=== PATIENT | female | born 1940 | race Caucasian/White ===

== ENCOUNTER 2017-02-13 06:21 | Day surgery (SDC) | payer MEDICARE ==
[~2017-02-13] VITALS: Ht 144.8 cm; Wt 77.0 kg
[~2017-02-13 06:21] MED LIST: DIOV320T PO; HYDR-2768 PO; OXYC-360 PO; STOO100C PO
[2017-02-13] MEDS ORDERED: IOHEXOL 350 MG/ML 10 ML VIAL (for RAD DIAG) IVCONTRAST ONE (06:22)
[2017-02-13] MEDS ORDERED: IOHEXOL 350 MG/ML 50 ML BTL (for Cath Lab) OTHER ONE (06:22)
[2017-02-13 07:00] VITALS: BP 149/77; PULSE 69; RESP 17; O2SAT 97
[2017-02-13] MEDS ORDERED: ASPI1TAB57 PO (07:01)
[2017-02-13] MEDS ORDERED: PRAV20TA2 PO (07:01)
[2017-02-13] MEDS ORDERED: VENTAER INH (07:01)
[2017-02-13] MEDS ORDERED: FURO20TA PO (07:01)
[2017-02-13] MEDS ORDERED: VALS1TAB70 PO (07:01)
[2017-02-13] MEDS ORDERED: MULTTAB67 PO (07:01)
[2017-02-13] MEDS ORDERED: OMEP20TA93 PO (07:01)
[2017-02-13] MEDS ORDERED: HEPARIN-NS/PF INJ 1,000 ML ONE (08:45)
[2017-02-13] MEDS ORDERED: MIDAZOLAM HCL 2 MG/2 ML VIAL ONE (08:52)
--- NOTE | 2017-02-13 09:40 | CATHPROC ---
[employer] HIS Report Study Information Study Number Admission Scheduled Start Study Start [id number] Feb 13 2017 6:21AM 02/13/2017 Feb 13 2017 8:30AM [facility] Cardiac Catheterization Admit Source Facility Department Other [facility] Security Chief Physician and Clinical Staff Initial Chase Martinez Trimming Inspectorlatoya Conti RN, Ayna Recorder Delaney MontielRN Recorder Omi Rowley,RT(R) Scrub Shayy Jara,RT(R) Procedures Performed Procedure Location (Site) Vessel Name Coronary Angiograms LCA Left Coronary Coronary Angiograms RCA Right Coronary Equipment Time Bladder Tier Description Size Mfg Part Number Used/Scraped ARROW INTERNATIONAL CATHETER, FR.7 BALLOON [id number] 08:44 FR 7 Used INC. WEDGE PRESSURE *[id number] TRANSDUCER, TRUWAVE [id number] 08:44 CARRINGTON HOYOS * Used W/STOCKCOCK *[id number] [id number] *[id number] [id number] *[id number] 08:44 MEDLINE INDUSTRIES PACK, CCL CUSTOM * Used *[id number] 08:44 Glaxstar PACER PEN, SKIN DUAL W/ RULER * Used *[id number] 08:44 [employer] WIRE, 3MMJ .035 180CM 180CM Used *[id number] 08:44 NAMIC MANIFOLD, 2 PORT * Used *[id number] 08:44 NAMIC MANIFOLD, 4 PORT * Used *[id number] 08:44 NYCOMED OMNIPAQUE, 350 MG, 150ML 150ML [id number] Used [id number] 08:44 GERBER [employer] BLANKET,WARM AIR CCL * Used *[id number] 08:44 TERUMO MEDICAL SHEATH, FR5 TERUMO (10CM) FR 5 Used *[id number] 08:48 TERUMO MEDICAL SHEATH, FR5 TERUMO (10CM) FR 5 Used *[id number] 08:44 TERUMO MEDICAL SHEATH, FR7 TERUMO (10CM) FR 7 Used *[id number] History: Current Medications Medication Dosage/Unit Route Frequency Last Date/Time Taken ASA 81 mg Oral LASIX 20 mg Oral Statins (any) 20 mg Oral DIOVAN 320 mg Oral History: Allergies Allergy Reaction No Known Allergies History: Risk Factors Family History of Hypertension Dyslipidemia Previous NV Previous Heart Failure Premature CAD Yes Yes No No No Prior Valve Prior PCI Prior CABG Surgery No No No Cerebrovascular Peripheral Artery Chronic Lung On Dialysis Diabetes Disease Disease Disease No No No Yes No History: Symptoms/Diagnosis Selection Items Chest pain MONTILLA Valve disease History: Stress Tests Stress or Imaging Studies Performed No History: Other Disease Selection Items COPD HTN History: Other Current Smoker No Labs Hgb (g/dl) Hct (%) WBC (l/cumm) Platelets (thousands) 11.60-17.00 35.00-51.00 4.00-11.00 150.00-450.00 11.7 34.9 4 152 Glucose (mg/dl) BUN (mg/dl) Creatinine (mg/dl) BUN:Creatinine (1:x) 74.00-106.00 7.00-18.00 0.50-1.30 10.00-20.00 87 18 0.8 22.5 Na (meq/l) K (meq/l) 136.00-145.00 3.50-5.10 140 4.1 INR (PTT:PT) 0.90-1.10 0.9 CPK-MB (ng/ML) 0.50-3.60 Not Drawn Medication Medication Total Dose (Bolus/Oral) Medication Total Dosage/Unit 1% XYLOCAINE 20 mL FENTANYL 50 mcg VERSED 2 mg Medications (Bolus/Oral) Medication Time Given Dosage/Unit Administered By Reason FENTANYL 02/13/2017 9:11:02 AM 50 mcg Ayan Conti RN 50 mcg FENTANYL given in lab by Ayan Conti RN via Peripheral IV. Ordered by Chase Lopez. 1% XYLOCAINE 02/13/2017 9:12:25 AM 20 mL Chase Lopez 20 mL 1% XYLOCAINE given in lab by Chase Lopez in Right Groin via Subcutaneous. Ordered by Chase Lopez. VERSED 02/13/2017 9:12:51 AM 2 mg Ayan Conti RN 2 mg VERSED given in lab by Ayan Conti RN in Left Antecubital via Peripheral IV. Ordered by Chase Lopez. Initial Case Assessment Cardiovascular HR Rhythm NIBP Chest Pain 73 NSR 160/93 0 Edema Present Skin color Skin Mild Normal Warm Dry Circulatory - Right Pulses Dorsalis Pedis Posterior Tibial Femoral 2 2 2 Scale (0,1,2,3,4,d) Circulatory - Left Pulses Dorsalis Pedis Posterior Tibial Femoral 1 1 1 Scale (0,1,2,3,4,d) Circulatory - Lower Extremities Color Lower Right Color Lower Left Normal Normal Neurological State Oriented to time-place- Alert Moves all extremities person Respiration - General Respiration Rate SpO2 (%) (B/min) 19 97 Final Case Assessment Cardiovascular HR Rhythm NIBP Chest Pain 65 NSR 141/70 0 Edema Present Skin color Skin Mild Normal Warm Dry Circulatory - Right Pulses Dorsalis Pedis Posterior Tibial Femoral 2 2 2 Scale (0,1,2,3,4,d) Circulatory - Left Pulses Dorsalis Pedis Posterior Tibial Femoral 1 1 1 Scale (0,1,2,3,4,d) Circulatory - Lower Extremities Color Lower Right Color Lower Left Normal Normal Neurological State Oriented to time-place- Drowsy Moves all extremities person Respiration - General Respiration Rate SpO2 (%) O2 (lpm) (B/min) 20 100 2 Chronological Log Time Study Chronological Log 8:39:40 Patient arrived via Bed. 8:39:42 Patient Name, D.O.B, / Armband Verified By R.N. 8:39:43 Consent signed by the physician and the patient and verified by the [facility] Security Chief staff. 8:39:44 Pre-op and post- op instructions given; patient acknowledges understanding of instructions. 8:41:13 Verbal Stimulation=2 Physical Stimulation=2 Airway=2 Respiration=2 TOTAL=8. (0=absent, 1=li mited, 2=present) 8:41:30 Presedation assessment performed by [facility] Security Chief RN. 8:41:34 Patient has been NPO for More than 6Hrs. 8:41:34 Skin Breakdown-None per pt 8:42:08 Patient Warmer Placed on the Table. 8:42:10 Sharri Prominences Protected 8:42:32 A # 20 IV was noted in the Antecubital (left). Grade = 0 0.9NS attached by ALTHEA Norris in la b. Infusing at KVO 8:43:09 History and physical on the chart or being dictated. Vitals capture started with the following parameters, Patient=Adult, Interval=3 min, Initial Pr smxisu=227 mmHg, 8:45:45 Deflation Rate=5 mmHg, Cuff placed on Right Arm 8:46:12 Reference ECG taken 8:47:00 Bilateral groins prepped with 2% chlorhexidine, and draped after a 3 minute waiting time. 8:47:07 HR=71 bpm, JLIG=180/83 mmhg, SpO2=97.0 %, Resp=20 B/min, Pain=0, Marjyane=10, Hernández=2 8:49:32 HR=72 bpm, IZVO=353/75 mmhg, SpO2=98.0 %, Resp=19 B/min, Pain=0, Maryjane=10, Hernández=2 8:52:32 HR=71 bpm, XXBV=526/81 mmhg, SpO2=98.0 %, Resp=20 B/min, Pain=0, Maryjane=10, Hernández=2 8:55:33 HR=74 bpm, MJDQ=131/82 mmhg, SpO2=98.0 %, Resp=19 B/min, Pain=0, Maryjane=10, Hernández=2 8:57:46 Pressure channel 1 zeroed. 8:58:33 HR=73 bpm, BAJN=759/79 mmhg, SpO2=97.0 %, Resp=18 B/min, Pain=0, Maryjane=10, Hernández=2 Assessment: Initial Case, HR=73 BPM, Rhythm=NSR, TTSO=584/93 mmhg, Chest Pain=0, Edema=Mild, Col or=Normal, Skin = Warm, Dry Right Pulses: Darnell Ped=2, Post Tib=2, Femoral=2 Left Pulses: Darnell Ped=1, Post Tib=1, Femoral=1 9:01:02 Lower Right Extremities: Color=Normal Lower Left Extremities: Color=Normal Neurological: State=Alert, Ox3, VENTURA Respiration: Resp=19 B/min, SpO2=97 % 9:01:33 HR=73 bpm, YKZZ=580/74 mmhg, SpO2=97.0 %, Resp=21 B/min, Pain=0, Maryjane=10, Hernández=2 9:01:58 MD paged 9:04:31 HR=67 bpm, BDWP=400/76 mmhg, SpO2=96.0 %, Resp=18 B/min, Pain=0, Maryjane=10, Hernández=2 9:05:08 MD responded 9:07:31 HR=69 bpm, JTMY=264/74 mmhg, SpO2=96.0 %, Resp=23 B/min, Pain=0, Maryjane=10, Hernández=2 9:07:59 MD arrived. 9:10:34 HR=69 bpm, KSCA=331/70 mmhg, SpO2=97.0 %, Resp=21 B/min, Pain=0, Maryjane=10, Hernández=2 9:11:02 50 mcg FENTANYL given in lab by Ayan Conti RN via Peripheral IV. Ordered by Chase Lopez . Time Out. Correct patient, correct procedure, correct physician, power injector not loaded with contrast with filling station laborer 9:11:50 team present. Time Out Concurred by MD and individual staff in procedure. 9:12:24 Case Start 9:12:25 20 mL 1% XYLOCAINE given in lab by Chase Lopez in Right Groin via Subcutaneous. Ordered Chase Hendrix. 9:12:51 2 mg VERSED given in lab by Ayan Conti RN in Left Antecubital via Peripheral IV. Ordered Chase Hendrix. 9:13:32 HR=71 bpm, OBBG=587/75 mmhg, SpO2=86.0 %, Resp=15 B/min 9:13:41 Access site was Left Femoral Artery. 9:13:51 A SHEATH, FR5 TERUMO (10CM) FR 5 was advanced into the Fem Art (right) using the Percutaneou s technique. 9:14:39 Access site was Right Femoral Vein. 9:14:48 A SHEATH, FR7 TERUMO (10CM) FR 7 was advanced into the Fem Vein (right) using the Percutaneo us technique. 9:15:16 A CATHETER, FR.7 BALLOON WEDGE PRESSURE FR 7 was inserted via Fem Vein (right) 9:16:30 HR=65 bpm, GAUI=627/62 mmhg, SpO2=97.0 %, Resp=13 B/min Recorded Pressure: RV, HR=67, Condition=Condition 1 9:16:36 (Right Ventricle) RV 34/13 Recorded Pressure: MPA, HR=66, Condition=Condition 1 9:17:42 (Main Pulmonary Artery) MPA Recorded Pressure: PCW, HR=63, Condition=Condition 1 9:18:55 (Pulmonary Capillary Wedge) PCW 9:19:28 HR=64 bpm, FMEG=217/62 mmhg, SpO2=98.0 %, Resp=12 B/min, Pain=0, Maryjane=7, Hernández=3 9:19:52 Saturation: Site=Ao (Aorta) , O2=97.4 %, Hgb=11.7 gm/dl, Condition=Condition 1. Used in calc ulation. Recorded Pressure: RA, HR=65, Condition=Condition 1 9:20:10 (Right Atrium) RA 17/13/11 9:20:27 [place] Guevara Catheter Removed Saturation: Site=MPA (Main Pulmonary Artery) , O2=74.1 %, Hgb=11.7 gm/dl, Condition=Condition 1 . Used in 9:20:32 calculation. A JL 4.0 INFINITI CATHETER FR 5 was advanced over a wire. OMNIPAQUE, 350 MG, 150ML 150ML was us ed for 9:20:48 injections. 9:21:14 Catheter was removed A JR 4.0 INFINITI CATHETER FR 5 was advanced over a wire. OMNIPAQUE, 350 MG, 150ML 150ML was us ed for 9:21:15 injections. 9:22:41 The RCA was injected and visualized at various angles. OMNIPAQUE, 350 MG, 150ML 150ML used . 9:23:05 HR=67 bpm, FMMZ=091/76 mmhg, SpO2=99.0 %, Resp=16 B/min, Pain=0, Maryjane=7, Hernández=3 After removing the current catheter a JL 5.0 INFINITI CATHETER FR 5 was advanced over a WIRE, 3 MMJ .035 180CM 9:23:09 180CM. 9:24:04 The LCA was injected and visualized at various angles. OMNIPAQUE, 350 MG, 150ML 150ML used . Recorded Pressure: Ao, HR=66, Condition=Condition 1 9:24:49 (Aorta) Ao 139/65/96 9:25:33 HR=65 bpm, DIVS=042/73 mmhg, SpO2=99.0 %, Resp=17 B/min, Pain=0, Maryjane=7, Hernández=3 9:25:54 Catheter was removed 9:25:57 Case End 9:28:29 HR=67 bpm, IDNN=329/70 mmhg, SpO2=99.0 %, Resp=18 B/min, Pain=0, Maryjane=7, Hernández=3 9:30:00 Sheath(s) left in place, will be removed in Holding Area Assessment: Final Case, HR=65 BPM, Rhythm=NSR, LCUR=681/70 mmhg, Chest Pain=0, Edema=Mild, Somers r=Normal, Skin = Warm, Dry Right Pulses: Darnell Ped=2, Post Tib=2, Femoral=2 Left Pulses: Darnell Ped=1, Post Tib=1, Femoral=1 9:30:02 Lower Right Extremities: Color=Normal Lower Left Extremities: Color=Normal Neurological: State=Drowsy, Ox3, VENTURA Respiration: Resp=20 B/min, EzY1=158 %, O2=2 lpm 9:30:51 Sterile dressing applied to site 9:30:52 No case complications noted. 9:30:53 Cine recording checked. 9:30:59 DOCU called. Spoke to ALTHEA Gómez. Sheaths ready to be pulled at arrival 9:31:18 Bedside Report will be given. 9:31:23 Verbal Stimulation=2 Physical Stimulation=2 Airway=2 Respiration=2 TOTAL=8. (0=absent, 1=li mited, 2=present) 9:31:31 HR=66 bpm, OHVB=984/74 mmhg, RbT1=389.0 %, Resp=21 B/min, Pain=0, Maryjane=8, Hernández=3 9:31:42 A Left and Right Heart Cath was performed. 9:36:15 Vitals capture stopped. 9:36:27 Patient moved to [facility] End Study - Contrast Media Used In Study Contrast Total Opened (mL) Total Used (mL) Total Wasted (mL) Omnipaque 150 40 110 End Study - Maximum Contrast Load Max Contrast Load (mL) 481.3 End Study - Radiation Exposure Fluoro Time (minutes) 2.7 End Study - Sheaths Sheaths Pulled By Sheath Hold Time (min) Shayy Jara 20 End Study - Patient Disposition Complications Transferred To Interventional Outcome No [facility] Security Chief Holding successful
[2017-02-13] MEDS ORDERED: MISC INFORMATION XX ONE (09:45)
[2017-02-13] MEDS ORDERED: LIDOCAINE HCL 1% 50 ML VIAL INFIL PRN (09:45)
[2017-02-13] MEDS ORDERED: LORazepam 2 MG/ML VIAL IV PUSH PRN (09:45)
[2017-02-13] MEDS ORDERED: METOCLOPRAMIDE HCL 10 MG/2 ML VIAL IV PUSH PRN (09:45)
[2017-02-13] MEDS ORDERED: ATROPINE SULFATE 1 MG/ML VIAL IV PUSH PRN (09:45)
[2017-02-13] MEDS ORDERED: BACITRACIN OINT 0.9 GM PKT TOP ONE (09:45)
[2017-02-13] MEDS ORDERED: SODIUM CHLOR 0.9% 250 ML INJ 250 ML IV PRN (09:45)
[2017-02-13] MEDS ORDERED: ONDANSETRON HCL 4 MG/2 ML VIAL IV PUSH PRN (09:45)
--- NOTE | 2017-02-13 10:23 | MA ---
cc: BECK WICK MD DATE 02/13/2017 INDICATION Aortic stenosis. PROCEDURE PERFORMED 1. Fluoroscopy with interpretation 2. Right heart catheterization 3. Coronary angiography METHOD The risks, benefits and alternatives discussed with the patient. The patient understood and consented to the procedure. PROCEDURE The patient brought into the catheterization lab, placed on the catheterization table. The right groin was prepped and draped in a sterile fashion. The right groin was anesthetized with 2% lidocaine. The right common femoral was cannulated and a 5-Latvian 11 cm sheath was placed. The right femoral vein was accessed and a 6-[place]vian 11 cm sheath was placed. RIGHT HEART CATHETERIZATION A [place]-Guevara pulmonary II catheter was advanced to the level of the right atrium under fluoroscopic guidance. Hemodynamics were performed in all chambers while advancing to the pulmonary capillary wedge position. Hemodynamics are as follows: 1. Right atrial pressure measured 11 mmHg. 2. Right ventricular pressure measured 34/8 mmHg. 3. Pulmonary arterial pressure measured 36/14 mmHg. 4. Pulmonary capillary wedge pressure measured at 14 mmHg. 5. Cardiac output measured at 5.7 liters per minute. 6. Cardiac index 3.4 liters per minute per meter squared. CORONARY ANGIOGRAPHY 1. Left main coronary is angiographically normal. 2. Left anterior descending coronary artery has a 30% stenosis in the mid segment. The remainder of the vessel has minor luminal irregularities. 3. Left circumflex is a codominant vessel that gives rise to a very small posterior descending branch. There is a ramus intermedius branch with minor luminal irregularities. The remainder of the circumflex is angiographically normal. 4. Right coronary is also codominant and gives rise to a right-sided posterior descending branch. 5. The right coronary has minor luminal irregularities. CONCLUSIONS 1. Severe aortic stenosis. 2. Normal left and right heart filling pressures. 3. Normal cardiac output and index. 4. Mild nonobstructive coronary disease. PLAN We will continue with our workup related to the aortic valve. We will determine her candidacy for transcatheter aortic valve replacement versus surgical aortic valve replacement. MD CHANTELLE Carpio/NIRMALA /9:51 AM /10:09 AM
[2017-02-13 12:17] LABS: BLOOD, URINE MOD (NEG); GLUCOSE,URINE NEG (NEG); KETONE, URINE NEG (NEG); NITRITE,URINE NEG (NEG); SQUAMOUS EPITHELIAL CELL URINE <1 /hpf (0-5); URINE COLOR LIGHT-YELLOW (YELLW/STRAW)
[2017-02-13 12:18] LABS: COMMENT (UR) CATH-CULT NOT IND; CULTURE IF INDICATED CATH CULTURE NOT IND
--- NOTE | 2017-02-13 14:12 | PD.CAR.PN ---
CVT Progress Note Subjective/Hospital Course: sts data discussed with pt and son RISK SCORES About the STS Risk Calculator Procedure: AV Replacement Risk of Mortality: 3.083% Morbidity or Mortality: 17.053% Long Length of Stay: 7.485% Short Length of Stay: 31.255% Permanent Stroke: 1.695% Prolonged Ventilation: 12.037% DSW Infection: 0.217% Renal Failure: 3.47% Reoperation: 7.238% Objective: Vital Signs Date Time Temp Pulse Resp B/P (MAP) Pulse Ox O2 Delivery O2 Flow Rate FiO2 02/13/17 10:23 97 Room Air 02/13/17 07:00 69 17 149/77 (101) 97 Labs: Laboratory Tests Test 02/13/17 06:50 02/13/17 11:08 Albumin 3.9 GM/DL (3.4-5.0) Urine Color LIGHT-YELLOW (YELLW/STRAW) Urine Turbidity CLEAR (CLEAR) Urine pH 7.0 (5.0-8.5) Urine Specific Hope 1.026 (1.002-1.035) Urine Protein NEG mg/dL (NEG-TRACE) Urine Glucose (UA) NEG mg/dL (NEG) Urine Ketones NEG mg/dL (NEG) Urine Occult Blood MOD (NEG) Urine Nitrite NEG (NEG) Urine Bilirubin NEG (NEG) Urine Urobilinogen LESS THAN 2.0 MG/DL (LESS Urine Leukocyte Esterase SMALL (NEG) Urine RBC 1 /hpf (0-3) Urine WBC 2 /hpf (0-5) Urine Squamous Epithelial Cells <1 /hpf (0-5) Microscopic Urinalysis Comment CATH-CULT NOT IND Bernie Sheikh Feb 13, 2017 14:12
[2017-02-13 14:45] LABS: AUTOMATED NEUTROPHIL # 13.2 TH/MM3 (1.8-7.7); BASOPHIL % 0.2 % (0.0-2.0); EOSINOPHIL # 0.1 TH/MM3 (0-0.4); EOSINOPHIL % 0.7 % (0.0-4.0); HEMATOCRIT 33.1 % (35.0-46.0); HEMO FLAGS DIFF FINAL; LYMPH % 13.6 % (9.0-44.0); LYMPHOCYTE # 2.3 TH/MM3 (1.0-4.8); MEAN CELL VOLUME 90.8 FL (80.0-100.0); MEAN CORPUSCULAR HEMOGLOBIN 31.4 PG (27.0-34.0); MEAN CORPUSCULAR HGB CONC 34.6 % (32.0-36.0); MONO % 7.4 % (0.0-8.0); NEUT % 78.1 % (16.0-70.0); PLATELET COUNT 283 TH/MM3 (150-450); RED BLOOD COUNT 3.65 MIL/MM3 (4.00-5.30); RED CELL DISTRIBUTION WIDTH 13.3 % (11.6-17.2); WHITE BLOOD COUNT 16.9 TH/MM3 (4.0-11.0)
--- NOTE | 2017-02-13 15:06 | RADRPT ---
EXAM DATE/TIME: 02/13/2017 14:28 [facility] COMPARISON: No previous studies available for comparison. INDICATIONS : Preop aortic valve replacement. MEDICAL HISTORY : Coronary artery disease. HTN. Asthma. Endometrial carcinoma. SURGICAL HISTORY : Orthopedic surgery, right index finger. ENCOUNTER: Initial ACUITY: 1 day PAIN SCORE: 3/10 LOCATION: Bilateral neck PEAK SYSTOLIC VELOCITIES (cm/sec): ICA/CCA RATIO: Right: 1.6 Left: 1.6 ICA: Right: 98 Left: 128 CCA: Right: 63 Left: 81 ECA: Right: 69 Left: 60 VERTEBRAL: Right: 44 antegrade Left: 60 antegrade Elevated flow velocities and ICA/CCA ratios have been found to correlate with increased degrees of vessel stenosis, calculated as percentage of diameter relative to a normal segment of distal ICA/CCA FINDINGS: RIGHT CAROTID: Mild calcified plaque involving the carotid bulb and ICA origin. The ICA is tortuous. No significant stenosis is visualized. The waveforms are within normal limits. LEFT CAROTID: Mild calcified plaque involving the carotid bulb and ICA origin. The ICA is tortuous. No significant stenosis is visualized. The waveforms are within normal limits. VERTEBRAL ARTERIES: Antegrade flow is seen in both vertebral arteries. MISCELLANEOUS: None. CONCLUSION: 1. Mild calcified atherosclerotic plaque without a hemodynamically significant stenosis involving eit her carotid artery. Mild elevation of both ICA velocities relates to tortuosity of the vessels. 2. Antegrade flow involving both vertebral arteries. Gasper Hess Jr., MD on February 13, 2017 at 15:02 Board Certified Radiologist. This report was verified electronically.
[2017-02-13 15:21] LABS: ALKALINE PHOSPHATASE 166 U/L (45-117); ALT (GPT) 72 U/L (10-53); ANION GAP 12 MEQ/L (5-15); AST (GOT) 42 U/L (15-37); BICARBONATE 22.5 MEQ/L (21.0-32.0); BLOOD UREA NITROGEN 14 MG/DL (7-18); CHLORIDE 103 MEQ/L (98-107); GLOMERULAR FILTRATION RATE 109 ML/MIN (>89); SODIUM (NA) 137 MEQ/L (136-145); TOTAL BILIRUBIN ADULT 0.3 MG/DL (0.2-1.0)
--- NOTE | 2017-02-13 16:58 | RADRPT ---
EXAM DATE/TIME: 02/13/2017 16:18 [facility] COMPARISON: No previous studies available for comparison. INDICATIONS : Pre op AVR. Evaluate for pneumothorax, pneumonia, or communicable diseases. MEDICAL HISTORY : None. SURGICAL HISTORY : None. ENCOUNTER: Initial ACUITY: 1 day PAIN SCORE: 0/10 LOCATION: Bilateral chest FINDINGS: A single view of the chest demonstrates the lungs to be symmetrically aerated without evidence of mas s, infiltrate or effusion. The cardiomediastinal contours demonstrate mild dilation of aortic root. Osseous structures are intact. CONCLUSION: 1. Mild dilation of aortic root. No acute abnormality. Jono Jones MD on February 13, 2017 at 16:55 Board Certified Radiologist. This report was verified electronically.
--- NOTE | 2017-02-13 19:40 | RADRPT ---
EXAM DATE/TIME: 02/13/2017 17:17 [facility] COMPARISON: No previous studies available for comparison. INDICATIONS : Post cardiac catherization, TAVR. IV CONTRAST: 99 cc Omnipaque 350 (iohexol) IV RADIATION DOSE: 12.20 CTDIvol (mGy) MEDICAL HISTORY : Cardiovascular disease. Hypertension. Endometrial cancer. SURGICAL HISTORY : Cardiac catherization. ENCOUNTER: Initial ACUITY: 1 day PAIN SCALE: 1/10 LOCATION: Bilateral chest TECHNIQUE: Volumetric scanning was performed using a multi-row detector CT scanner. The data was post processed with a variety of visualization algorithms including full volume maximum intensity projection, multi -planar sliding thin slab reformation, curved planar reformation, and surface rendering techniques. Using automated exposure control and adjustment of the mA and/or kV according to patient size, radiat ion dose was kept as low as reasonably achievable to obtain optimal diagnostic quality images. DIC OM format image data is available electronically for review and comparison. FINDINGS: CARDIAC: The coronary system is right dominant. There is focal calcification at the LAD. Minimal calcificatio n at the left circumflex. Significant stenosis is not seen. There is a moderate pericardial effusion measuring up to 1 cm. AORTIC ROOT/VALVE: 3 cusps are evident with aortic valve calcifications. The aortic root measures 2.7. Mid ascending thoracic aorta measures 3.7 cm with no calcifications. THORACIC AORTA: Origin of the great vessels is normal. No evidence of aneurysm, mural thrombus, dissection, or steno sis. There are mild calcification seen in the descending thoracic aorta. The mid descending thoracic aorta measures 2.7 cm. ABDOMINAL AORTA: No evidence of aneurysm, mural thrombus, dissection, or stenosis. There are scattered mural calcifica tions. CELIAC ARTERY: Celiac artery is widely patent. SMA: Superior mesenteric artery is widely patent. RIGHT RENAL ARTERY: Right renal artery is widely patent. LEFT RENAL ARTERY: Left renal artery is widely patent. RIGHT COMMON ILIAC: No evidence of aneurysm, mural thrombus, dissection, mural calcification, or stenosis. The common fe moral measures 0.8 cm. LEFT COMMON ILIAC: No evidence of aneurysm, mural thrombus, dissection, mural calcification, or stenosis. The common fe moral measures 0.7 cm. THORAX: There is a calcified granuloma in the right lower lobe. There some minimal atelectasis at the left li ngula and right middle lobe. ABDOMEN: There are scattered colonic diverticula. There is degenerative change in the lumbar spine. PELVIS: There is some minimal induration at the right groin likely from recent catheterization. CONCLUSION: 1. Scattered atherosclerotic calcifications seen throughout the arterial system. 2. Calcifications at the aortic valve. 3. Moderate pericardial effusion. 4. Suspected postcatheterization changes at the right groin region. There some mild induration around the common femoral region. No focal fluid collection is seen. Jordan Siu MD on February 13, 2017 at 19:23 Board Certified Radiologist. This report was verified electronically.
[2017-02-13 21:49] LABS: HEMOGLOBIN A1a 0.8 %; HEMOGLOBIN A1b 1.8 %; HEMOGLOBIN LA1C 1.9 %; HEMOGLOBIN P3 4.9 %
--- NOTE | 2017-02-14 07:43 | MB ---
cc: CIRO LOVE M.D., SOHIT K. MD MINOR, STEPHEN DATE OF CONSULTATION: 02/13/2017 DATE OF : 1940 HISTORY OF PRESENT ILLNESS A 76-year-old female patient of Dr. Ciro Love and Dr. Chase Lopez who apparently was a referral from the primary care regarding aortic stenosis. She was following at [facility] for the aortic stenosis but has not been there since 2014, was not interested in surgery. She speaks only South African, very little Setswana. Her son is at the bedside for translation. She has been complaining of some chest pressure off and on at rest and exertion, moderate dyspnea with exertion, chronic lower extremity edema. She does take Lasix which seems to help with the edema. She has had some difficulty walking up some stairs recently. She underwent cardiac cath today that showed nonobstructive disease. She did have 30% stenosis in the mid distal LAD, ejection fraction of 55%. She underwent prior 2D echo at Dr. Lopez's office which showed a mean gradient of 44 mmHg, moderate to severe aortic valve stenosis, some mild aortic insufficiency, mild tricuspid regurgitation. We were consulted to evaluate for aortic valve replacement versus transcatheter aortic valve replacement. The patient's frailty score is 1 out of 4. Her risk of mortality is 3.0. PAST MEDICAL HISTORY Her past medical history significant for - 1. Aortic stenosis. 2. 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 3. Anemia. 4. Asthma. 5. Benign essential hypertension. 6. Hyperlipidemia. 7. Obesity. PAST SURGICAL HISTORY Surgeries include - 1. Colonoscopy. 2. EGD. 3. Right index finger surgery. 4. Hysteroscopy. 5. Radiation therapy. 6. Salpingo-oophorectomy. 7. Total abdominal hysterectomy. ALLERGIES NO KNOWN DRUG ALLERGIES. MEDICATIONS Home meds include - 1. Baby aspirin. 2. Lasix. 3. Nystatin. 4. Omeprazole. 5. Multivitamin. 6. Pravachol. 7. Valsartan. 8. Ventolin inhaler. FAMILY HISTORY Noncontributory. SOCIAL HISTORY Lives alone but close to her son. Speaks only South African. Nonsmoker. Retired. REVIEW OF SYSTEMS As above in HPI, other 12 systems unremarkable. PHYSICAL EXAMINATION VITAL SIGNS: Blood pressure 140/70, heart rate of 70, afebrile, O2 sat 97 on room air. GENERAL: The patient is awake, alert, in no acute distress. HEAD, EYES, EARS, NOSE AND THROAT: Head is normocephalic. She does wear dentures at times. NECK: Supple. No JVD. HEART: Heart sounds S1 and S2. Grade 3/6 systolic murmur best noted at the right sternal border. LUNGS: Clear to auscultation. No wheezes, rales or rhonchi. ABDOMEN: Soft, nontender. No masses or organomegaly. EXTREMITIES: No cyanosis, clubbing or edema. She does have trace edema to her lower extremities. LABORATORY DATA Lab work shows hemoglobin 11, hematocrit of 35, white cell count of 4, platelet count of 156. Sodium 140, potassium 4.1, BUN of 18, creatinine 0.82. INR 0.9. IMPRESSION This is a 76-year-old female with [id number] aortic stenosis, symptomatic [place] Class II-III, STS risk score of 3 and frailty score of 1/4. The patient has been seen and evaluated by Dr. Kacie Rios. Recommendation for minimally invasive aortic valve replacement. The son is wanting to talk to his brothers who [place] prior to making any further decision. In the meantime, we will obtain carotid ultrasound, CT TAVR chest pending. Other lab work pending. We will give the patient information for possible aortic valve replacement, and they will call us to make an appointment with our office. Dictated by ESE Jones Kacie NGO/SHEKHAR /2:20 PM /7:39 AM
--- NOTE | 2017-02-14 08:19 | ECHRPT ---
Indication: CONCLUSIONS Normal left ventricular size. Mild concentric left ventricular hypertrophy. The left ventricular systolic function is hyperdynamic with an estimated ejection fraction in the ra nge of 65- 70%. Nvhla-xa-kfca mitral valve regurgitation. Aortic valve sclerosis is present. Mild aortic valve regurgitation. Severe aortic valve stenosis. Aortic valve area is 0.56 cm. Aortic valve mean gradient is 41 mmHg. There is trace tricuspid valve regurgitation. The estimated pulmonary arterial pressure is 32.8 mmHg. BP: / HR: Rhythm: Sinus MEASUREMENTS (Male / Female) Normal Values Technical Quality:Fair 2D ECHO LV Diastolic Diameter PLAX 4.5 cm 4.2 - 5.9 / 3.9 - 5.3 cm LV Systolic Diameter PLAX 3.0 cm IVS Diastolic Thickness 1.1 cm 0.6 - 1.0 / 0.6 - 0.9 cm LVPW Diastolic Thickness 1.1 cm 0.6 - 1.0 / 0.6 - 0.9 cm LV Relative Wall Thickness 0.5 LVOT Diameter 1.8 cm Aortic Root Diameter 2.1 cm LA Systolic Diameter LX 3.5 cm 3.0 - 4.0 / 2.7 - 3.8 cm M-MODE AV Cusp Separation MM 1.3 cm DOPPLER AV Peak Velocity 412.0 cm/s AV Peak Gradient 67.9 mmHg AV Mean Gradient 41.0 mmHg AV Velocity Time Integral 113.0 cm AI Peak Velocity 432.0 cm/s AI Peak Gradient 74.6 mmHg AI Pressure Half Time 506.0 ms LVOT Peak Velocity 80.5 cm/s LVOT Peak Gradient 2.6 mmHg LVOT Velocity Time Integral 23.6 cm AV Area Cont Eq vti 0.6 cm AV Area Cont Eq pk 0.5 cm Mitral E Point Velocity 64.2 cm/s Mitral A Point Velocity 67.1 cm/s Mitral E to A Ratio 1.0 LV E' Lateral Velocity 34.5 cm/s Mitral E to LV E' Lateral Ratio 1.9 LV E' Septal Velocity 34.2 cm/s Mitral E to LV E' Septal Ratio 1.9 TR Peak Velocity 239.0 cm/s TR Peak Gradient 22.8 mmHg Right Atrial Pressure 10.0 mmHg Pulmonary Artery Systolic Pressu 32.8 mmHg Right Ventricular Systolic Press 32.8 mmHg PV Peak Velocity 50.4 cm/s PV Peak Gradient 1.0 mmHg FINDINGS LEFT VENTRICLE Normal left ventricular size. Mild concentric left ventricular hypertrophy. The left ventricular systolic function is hyperdynamic with an estimated ejection fraction in the ra nge of 65- 70%. RIGHT VENTRICLE Normal right ventricular size and systolic function. LEFT ATRIUM The left atrial size is normal. RIGHT ATRIUM The right atrial size is normal. ATRIAL SEPTUM Normal atrial septal thickness without atrial level shunting by limited color doppler interrogation. AORTA The aortic root and proximal ascending aorta are normal in size on limited imaging. MITRAL VALVE Kyxwu-ei-zzho mitral valve regurgitation. AORTIC VALVE Aortic valve sclerosis is present. Mild aortic valve regurgitation. Severe aortic valve stenosis. Aortic valve area is 0.56 cm. Aortic valve mean gradient is 41 mmHg. TRICUSPID VALVE There is trace tricuspid valve regurgitation. The estimated pulmonary arterial pressure is 32.8 mmHg. PULMONARY VALVE No pulmonary valve regurgitation or stenosis. VESSELS The inferior vena cava is normal in size. PERICARDIUM No pericardial effusion. Chase Lopez MD, FACC (Electronically Signed) Final Date:14 February 2017 08:18
== END 2017-02-13 18:09 | disposition home or self-care (01) ==
LOC: HECH 06:21 → HDIC 06:22 → HECH 18:09
PROVIDERS: ATTEND Internal Medicine
DX: I35.0 Nonrheumatic aortic (valve) stenosis (principal); I25.10 Atherosclerotic heart disease of native coronary artery without angina pectoris; I10 Essential (primary) hypertension; J45.909 Unspecified asthma, uncomplicated; Z85.42 Personal history of malignant neoplasm of other parts of uterus; I31.3 Pericardial effusion (noninflammatory); E78.5 Hyperlipidemia, unspecified; R79.89 Other specified abnormal findings of blood chemistry; Z01.810 Encounter for preprocedural cardiovascular examination
CPT/HCPCS: 71010; 74174; 80053; 81001; 82040; 82810; 83036; 85025; 86850; 86900; 86901; 87641; 93306; 93456; 93880; 99152; C1769; C1893; J1644; J2250; J3010; Q9967

== ENCOUNTER 2017-03-12 12:01 | Inpatient (IN) | payer MEDICARE ==
[~2017-03-12] VITALS: Ht 149.9 cm; Wt 76.9 kg
[2017-03-12] VITALS (7 sets, daily range): BP systolic 110–172; BP diastolic 43–81; PULSE 73–97; RESP 16–20; TEMP 97.6–98; O2SAT 94–99
--- NOTE | 2017-03-12 11:07 | MH ---
cc: ROBINSON DAIGLE DATE OF ADMISSION 03/12/2017 DATE OF 1940 REASON FOR ADMISSION Elective transaortic valve replacement. 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 After thorough evaluation she was deemed to be an adequate candidate for TAVR in the setting of STS frailty and co-morbidities. Today she reports feeling well. Denies chest pain, shortness of breath, PND, fevers, chills, nausea, vomiting, diarrhea or syncope. PAST MEDICAL HISTORY 1. Adenocarcinoma of the uterus status post resection and radiation. 2. Anemia. 3. Asthma. 4. Hypertension. 5. Hyperlipidemia. PAST SURGICAL HISTORY Uterus resection and radiation. ALLERGIES No known drug allergies. SOCIAL HISTORY Denies alcohol, smoking or illicit drug use. FAMILY HISTORY Noncontributory. MEDICATIONS Home medications reviewed. PHYSICAL EXAMINATION VITAL SIGNS: Temperature 97, respiratory rate 20, heart rate 120/80. O2 sat 100% on room air. GENERAL: She is awake, alert and oriented x3, in no acute distress. NECK: No JVD. No carotid bruits. HEART: Regular rate and rhythm. There is a 3/6 systolic ejection murmur in the aortic focus. LUNGS: Clear to auscultation bilaterally. ABDOMEN: Benign. EXTREMITIES: No cyanosis or edema. Pulses throughout. DATA Labs reviewed. STS score of 3%, frailty 1/4. EKG sinus rhythm with nonspecific ST changes. Echocardiogram shows an aortic valve jet velocity of 4.1, mean gradient 41, calculated valve area 0.66, and ejection fraction of 65%. Left heart cath shows nonobstructive coronary artery disease. There is a 30% lesion in the distal LAD and a 20% lesion in the right coronary artery. TAVR CTA shows a short annulus diameter of 21, long annulus diameter of 25 and annular area of 405.8. There is a trileaflet aortic valve. There is no calcification in the LVOT. No calcification in the STJ. The sinus of Valsalva diameter is 32. The STJ is 30. The left coronary height is 14. The right coronary height is 16.9. Iliacs show a minimal luminal diameter on the right of 7.2 and on the left of 7.5. ASSESSMENT 76-year-old female with severe symptomatic aortic stenosis who presents today for elective valve replacement. After thorough evaluation she is deemed to be intermediate risk for AVR and appropriate candidate for TAVR. The risks and benefits of TAVR including but not limited to infection, bleeding, neurovascular trauma, stroke, acute kidney injury, permanent pacemaker placement and emergent bypass surgery and have been explained to the patient. The patient understands the risks and she is willing to proceed. PLAN Keep n.p.o. for a right TF valve with a 23 mm plus 2cc S3 valve. MD CLOVIS Lewis/BT /10:31 AM /10:41 AM DEWAYNE
[~2017-03-12 12:01] MED LIST changes: +ASPI1TAB57 PO; -DIOV320T PO; +FURO20TA PO; +GLYCOPYRROLATE 1 MG/5 ML SYRINGE IV PUSH ONE; -HYDR-2768 PO; +LIDOCAINE HCL 1% PF 5 ML SYRINGE OTHER ONE; +MIDAZOLAM HCL 2 MG/2 ML VIAL IV ONE; +MULTTAB67 PO; +NEOSTIGMINE 5 MG/5 ML SYRINGE IV PUSH ONE; +NORMOSOL R INJ 1,000 ML IV ONE; +OMEP20TA93 PO; +ONDANSETRON HCL 4 MG/2 ML VIAL IV ONE; -OXYC-360 PO; +PHENYLEPH/NS 1000 MCG/10 ML SYR IV ONE; +PRAV20TA2 PO; +PROPOFOL 200 MG/20 ML AMP IV ONE; +ROCURONIUM INJ 50 MG/5 ML SYRINGE IV PUSH ONE; -STOO100C PO; +VALS1TAB70 PO; +VENTAER INH
[2017-03-12] MEDS ORDERED: MUPIROCIN 2% OINT 1 APPLIC/GM SYRINGE EACH NARE PRN (14:00)
[2017-03-12] MEDS ORDERED: ceFAZolin 2 GM PREMIX 50 ML IV PRN (14:00)
[2017-03-12] MEDS ORDERED: CHLORHEXIDINE GLUCONATE 2 % 1 PACK (2 CLOTHS) TOPICAL PRN ×2 (14:00→14:15)
[2017-03-12] MEDS ORDERED: POVIDONE IODINE 5% (ANTISEPSIS KIT) EACH NARE PRN (14:00)
[2017-03-12] MEDS ORDERED: ASPIRIN 325 MG TAB PO ONE (14:00)
[2017-03-12] MEDS ORDERED: LACTATED RINGER'S 1000 ML IV PRN (14:15)
[2017-03-12] MEDS ORDERED: POVIDONE IODINE 5% (ANTISEPSIS KIT) 4 APPLICATIONS EACH NARE PRN (14:15)
[2017-03-12] MEDS ORDERED: SODIUM CHLORID 0.9% 500 ML IV PRN (14:15)
[2017-03-12] MEDS ORDERED: INSULIN HUMAN REGULAR 1,000 UNITS/10 ML VIAL SQ PRN (14:15)
[2017-03-12] MEDS ORDERED: METOPROLOL TARTRATE 25 MG TAB PO PRN (14:15)
[2017-03-12 14:26] LABS: AUTOMATED NEUTROPHIL # 2.7 TH/MM3 (1.8-7.7); BASOPHIL % 0.4 % (0.0-2.0); EOSINOPHIL # 0.1 TH/MM3 (0-0.4); EOSINOPHIL % 1.5 % (0.0-4.0); HEMATOCRIT 37.4 % (35.0-46.0); HEMO FLAGS DIFF FINAL; LYMPH % 29.2 % (9.0-44.0); LYMPHOCYTE # 1.4 TH/MM3 (1.0-4.8); MEAN CELL VOLUME 95.9 FL (80.0-100.0); MEAN CORPUSCULAR HEMOGLOBIN 32.9 PG (27.0-34.0); MEAN CORPUSCULAR HGB CONC 34.3 % (32.0-36.0); MONO % 12.5 % (0.0-8.0); NEUT % 56.4 % (16.0-70.0); PLATELET COUNT 160 TH/MM3 (150-450); WHITE BLOOD COUNT 4.8 TH/MM3 (4.0-11.0)
[2017-03-12] MEDS ORDERED: HEPARIN-NS/PF INJ 2,500 ML ONE (14:27)
[2017-03-12 14:32] LABS: APTT (PATIENT) 27.4 SEC (24.3-30.1); PROTHROMBIN TIME - PATIENT 10.2 SEC (9.8-11.6)
[2017-03-12 14:41] LABS: BICARBONATE 30.7 MEQ/L (21.0-32.0)
[2017-03-12] MEDS ORDERED: CUSTODIOL HTK IRR SOLN 0 ML ONE (14:55)
[2017-03-12] MEDS ORDERED: PROTAMINE SULFATE 50 MG/5 ML VIAL ONE ×2 (16:06→16:19)
[2017-03-12] MEDS ORDERED: HEPARIN SODIUM - IV 10,000 UNITS/10 ML VIAL ONE (16:07)
[2017-03-12] MEDS ORDERED: SODIUM CHLOR 0.9% 1000 ML INJ 1,000 ML IV SCH (17:20)
--- NOTE | 2017-03-12 17:28 | PD.OP ---
cc: Homer Antonio MD; Kacie Rios MD; Marie Beverly MD; Chase Lopez MD Operative Report Date of Surgery: Mar 12, 2017 Preoperative Diagnosis: (1) Diastolic CHF due to valvular disease (2) Aortic stenosis Postoperative Diagnosis: same Procedure: Transvalvular aortic valve replacement with a 23 Lakeisha 3 tissue valve Balloon aortic valvuloplasty with an 18 True Balloon Percutaneous right and left femoral arterial access with Perclose closure of the right femoral artery Aortography Fluoroscopy Anesthesia: Dr. Collins Surgeon: Marie Beverly Co-surgeon - Dr. Faith [employer] Principal(s): Dr. John Rios Operation and Findings: The risks, benefits, complications, treatment options, and expected outcomes were discussed with the patient. The possibilities of reaction to medication, pulmonary aspiration, perforation of viscus, bleeding, recurrent infection, the need for additional procedures, failure to diagnose a condition, and creating a complication requiring transfusion or operation were discussed with the patient. The patient concurred with the proposed plan, giving informed consent. The site of surgery properly noted/marked. The patient was taken to hybrid operating room, identified as Muna Urban and the procedure verified as Transcatheter Aortic Valve Replacement. A Time Out was held and the above information confirmed. Standard monitoring lines and Pizarro catheter were placed. General anesthesia was induced. The patient was prepped and draped in a sterile fashion. Initially, left femoral arterial access was acquired using a Seldinger percutaneous technique. The details of this procedure were dictated under separate note by cardiology. Once a pigtail was positioned in the aortic annulus and a temporary transvenous pacemaker wire was placed in the right ventricular apex and tested, the right femoral artery was accessed using a needle followed by a guidewire under fluoroscopic guidance. The patient was heparinized. Serial dilators were used to dilate the left femoral artery to 14 Wolof caliber. The Zavala sheath was then inserted up to the distal abdominal aorta. Arch aortography was performed to define the implant view. A balloon aortic valvuloplasty was then performed using a 18 x 6 True balloon with the patient being paced at 180 beats per minute. A 23 Zavala Lakeisha 3 transcatheter aortic valve was then positioned in the annulus and deployed with the patient being paced at 180 beats per minute. Following deployment, the valve apparatus was withdrawn and arch aortography and MINDI were performed to assess the valve. The valve had no significant perivalvular leaks. Gradients were then measured and the sheath was slowly withdrawn to the distal right common iliac artery under fluoroscopic guidance. A runoff arteriogram was then performed to assess the aortic bifurcation and common iliac vessels. No dissections or perforations were noted. Therefore, the sheath was removed and the Perclose sutures secured with good hemostasis. Sterile dressings were placed. At the end of the operation, all sponge, instruments, and needle counts were correct. The patient was transferred to the CVICU in stable condition. Implants: 23 S3 tissue valve Complications: none Disposition: to CVICU in stable condition Marie Beverly MD Mar 12, 2017 17:28
[2017-03-12] MEDS ORDERED: ACETAMINOPHEN 325 MG TAB PO PRN (17:30)
[2017-03-12] MEDS ORDERED: DEXTROSE 50% IN WATER 50 ML VIAL(D50) IV PUSH PRN (17:30)
[2017-03-12] MEDS ORDERED: MISC INFORMATION OTHER ONE (17:30)
[2017-03-12] MEDS: ASPIRIN 81 MG CHEW TAB PO SCH (17:30)
[2017-03-12] MEDS ORDERED: GLUCAGON 1 MG/ML VIAL OTHER PRN (17:30)
[2017-03-12] MEDS ORDERED: ALBUTEROL SULFATE 90 MCG/ACT HFA 8 GM INHALER INH PRN (17:30)
[2017-03-12] MEDS ORDERED: CLOPIDOGREL 300 MG TAB PO ONE (17:30)
--- NOTE | 2017-03-12 17:31 | PD.CARD ---
Cardiology Procedure Note Procedure Name: TAVR Procedure Date: Mar 12, 2017 Procedure Note: PREOPERATIVE DIAGNOSIS -Severe aortic stenosis with preserved LV systolic function. -Hypertension -Hypercholesterolemia -Diastolic Heart Failure NYHA III sx POSTOPERATIVE DIAGNOSIS -Severe aortic stenosis with preserved LV systolic function. -Hypertension -Hypercholesterolemia -Diastolic Heart Failure NYHA III sx OPERATIVE PROCEDURE 1. Right transfemoral transaortic valve replacement with a 23-mm S3 Lakeisha aortic valve. 2. Balloon aortic valvuloplasty with a 18mm True balloon. 3. Aortic root angiogram. 4. Placement of pigtail catheter for angiography. 5. Temporary pacemaker insertion. 6. Perclose right common femoral arteries. ANESTHESIA Dr. Roche SURGEONs Dr. Marie Beverly and Dr. Kacie Rios Senior Mobile Application Developer: Electric Motor Mechanic: Dr. Homer Antonio Personal Injury Legal Assistant: Dr. Chase Lopez, Echo support: Dr. Fredi Tejada. INDICATION 76-year-old male with severe symptomatic aortic stenosis with progressive symptoms of heart failure and minimal shortness of breath on exertion. The patient has been evaluated for aortic valve replacement by two cardiac surgeons who felt the patient would be intermediate risk for conventional aortic valve replacement on the basis of frailty, STS scores and comorbidities. He has been evaluated for and accepted after extensive review of patient's chart by the entire team for transaortic valve replacement. The risks of the procedures have been discussed with the patient at length and the consents have been signed to proceed as planned. TECHNIQUE The patient was broad brought into the hybrid lab in a fasting state. The right and left groins were prepped and draped in a sterile fashion. A transesophageal echocardiogram probe was placed and used throughout the procedure to evaluate the aortic valve and position of the heart catheters. Using 1% Lidocaine for local anesthesia and a micropuncture kit a 5-Samoan sheath was inserted in the left left common femoral artery. Then a pigtail catheter was advanced over a J-wire around the arch of the aorta and aortic angiography was performed in order to get multiple views for deployment of this transcatheter valve. The valve access site was accessed with a micropuncture on the right femoral artery. Angiography was performed to confirm position of the puncture site. Then an 8-Samoan sheath was inserted followed by pre- closing the site. Then a 0.35 wire was advanced into the aorta followed by dilating the common femoral artery with a 10-Samoan dilator. This was followed with a 14 Samoan aortic valve sheath. The patient was fully heparinized with ACT checked afterwards. Then we used an AL-1 over a is 300 cm extra stiff and straight Amplatz wire to cross the aortic valve with the tip left in the mid left ventricular chamber. This was followed by insertion of a 6-Samoan angled pigtail and reshaping the stiff Amplatz wire that was preshaped to a ventricular size. Then the pigtail was removed by a 18 mm TRUE balloon that was introduced to the aorta for balloon aortic valvuloplasty with rapid pacing. After BAV was performed , we inserted the 23mm +2cc S3 Lakeisha valve with position confirmed via aortography. The balloon was mounted in the valve in the aorta and then advanced across the valve using a pigtail catheter fluoroscopy for confirmation of position. After confirmation of position of the valve, angiography was successfully deployed. The valve was successfully deployed by balloon inflation during rapid pacing. After deployment, there were no signs of para-aortic or aortic regurgitation on MINDI. The patient tolerated the procedure well without complications. The catheter then were removed. We pulled it back to the ascending aorta and then outside the body this was followed by removal of the sheath and Preclosing the area. Finally the pigtail was removed and then the sheath on the left side was removed and the vessel was Perclose and the vein was Mynx. This concluded the operation. Postoperative transesophageal echocardiogram demonstrated adequate function of the aortic prosthesis. COMPLICATIONS None DISPOSITION To the CVICU in stable condition for post cath care. DAPT with ASA and Plavix, early extubation, temporary pacemaker will remain for the next 24 hours and continue panel monitor. The patient can resume home medications today and after bedrest, he should go out of bed. We encourage ambulation and early ambulation and incentive spirometry. EP consult per protocol. Homer Antonio MD, MPH, [facility] Homer Antonio MD Mar 12, 2017 17:31
--- NOTE | 2017-03-12 17:40 | PD.PROCEDR ---
Procedure Note Procedure Procedure: Transesophageal Echocardiography Diagnosis: Severe aortic stenosis Indications: Operative planning for transcatheter aortic valve replacement Consent: Obtained Anesthesia: General endotracheal anesthesia Description of the Procedure: The patient was sedated and mechanically ventilated. The echo probe was inserted easily and without resistance. At the conclusion of the procedure, the echo probe was removed. Please see detailed echocardiogram report for formal findings. Preliminary Findings (not confirmed): Pre-procedure: 1) normal biventricular function 2) severe aortic stenosis 3) [id number] aortic regurgitation 4) trace mitral regurgitation 5) no evidence of intra-atrial shunting by color flow doppler 6) trace pericardial effusion was present prior to the procedure. Post-procedure: 1) s/p successful placement of transcatheter aortic valve 2) no evidence of bioprosthetic aortic valve stenosis 3) no perivalvular leak 4) stable pericardial effusion which was visualized pre-procedure. The patient tolerated the procedure well with no hemodynamic instability. There were no immediate complications noted. There was minimal EBL. I personally performed the procedure. Adrian Tejada MD Mar 12, 2017 17:40
--- NOTE | 2017-03-12 17:47 | PD.CONS ---
[facility] Service Critical Care Medicine Consult Requested By Dr. Faith Reason for Consult Perioperative management of medical comorbidities Primary Care Physician Gaye Peralta M.D. History of Present Illness This is a 68-year-old female with a past history significant for uterine cancer , anemia, asthma, hypertension, hyperlipidemia, and severe aortic stenosis who presents for elective transcatheter aortic valve replacement. She underwent uncomplicated aortic valve replacement via iliac access. She arrived to the CVICU extubated in stable condition arousing from anesthesia. No additional information is available from the patient due to her somnolence arousing from anesthesia. The remainder of the history is obtained from review of the medical record Review of Systems ROS Limitations: Clinical Condition, Altered Mental Status ROS Arousing from anesthesia Past Family Social History Allergies: Coded Allergies: No Known Allergies (Verified , 02/18/08) Past Medical History Severe aortic stenosis Adenocarcinoma of the uterus Anemia Asthma Hypertension Hyperlipidemia Past Surgical History Status post hysterectomy with XRT Reported Medications Ventolin Hfa 18 GM Inh (Albuterol Sulfate) 90 Mcg/Act Aer 2 Puff INH Q4-6H PRN Pravastatin 20 Mg Tab 20 Mg PO DAILY Valsartan 320 Mg Tab 320 Mg PO DAILY Furosemide 20 Mg Tab 20 Mg PO BID Aspirin 81 (Aspirin) 81 Mg Tabdr 81 Mg PO DAILY Omeprazole 20 Mg Tab 40 Mg PO DAILY Multiple Vitamin 1 Tab 1 Tab PO DAILY Active Ordered Medications See MAR Family History Reviewed and found to be noncontributory to her acute illness Social History No EtOH, smoking, drugs of abuse Physical Exam Vital Signs Vital Signs Date Time Temp Pulse Resp B/P (MAP) Pulse Ox O2 Delivery O2 Flow Rate FiO2 03/12/17 14:00 97.7 73 20 148/80 (102) 96 Physical Exam GENERAL: Elderly female, lying in bed, arousing from anesthesia, no acute distress HEENT: Normocephalic. Atraumatic. Pupils equal, round, reactive, conjugate. Mucous membranes are moist NECK: Trachea is midline. There is no JVD. Right IJ introducer sheath with transvenous pacer, dressing intact, site clean dry CHEST: Unlabored. Equal chest rise. Face mask oxygen. CARDIOVASCULAR: Normal rate, regular rhythm. Sinus by telemetry. Not currently paced ABDOMEN: Soft, nontender, nondistended. No guarding. MUSCULOSKELETAL: Pulses 2+. No peripheral edema. Bilateral groin sites with clear dressings applied, no evidence of hematoma. Bilateral lower extremity Dopplers present NEUROLOGICAL: RASS -2. Arousing from anesthesia. No focal deficits. Moves all extremities. Laboratory Laboratory Tests Test 03/12/17 13:25 White Blood Count 4.8 Red Blood Count 3.90 Hemoglobin 12.8 Hematocrit 37.4 Mean Corpuscular Volume 95.9 Mean Corpuscular Hemoglobin 32.9 Mean Corpuscular Hemoglobin Concent 34.3 Red Cell Distribution Width 13.0 Platelet Count 160 Mean Platelet Volume 9.2 Neutrophils (%) (Auto) 56.4 Lymphocytes (%) (Auto) 29.2 Monocytes (%) (Auto) 12.5 Eosinophils (%) (Auto) 1.5 Basophils (%) (Auto) 0.4 Neutrophils # (Auto) 2.7 Lymphocytes # (Auto) 1.4 Monocytes # (Auto) 0.6 Eosinophils # (Auto) 0.1 Basophils # (Auto) 0.0 CBC Comment DIFF FINAL Differential Comment Prothrombin Time 10.2 Prothromb Time International Ratio 1.0 Activated Partial Thromboplast Time 27.4 Blood Urea Nitrogen 21 Creatinine 0.82 Random Glucose 87 Calcium Level 9.1 Sodium Level 139 Potassium Level 4.0 Chloride Level 104 Carbon Dioxide Level 30.7 Anion Gap 4 Estimat Glomerular Filtration Rate 67 Result Diagram: 03/12/17 1325 03/12/17 1325 Assessment and Plan Assessment and Plan Assessment: 76-year-old female postop day 0 status post transcatheter aortic valve replacement from iliac access. We'll admit to the ICU and monitor closely overnight including frequent neurovascular checks. s/p TAVR with iliac access 03/12 Frequent neurovascular checks Anticoagulation per Dr. Faith Maintenance IV fluids Hypertension Add back home medication as needed Goal systolic blood pressure less than 180 Anemia secondary to chronic disease Does not need transfusion triggers at this time Follow-up a.m. CBC Hyperlipidemia Restart home statin Asthma Nebs as needed Wean oxygen for goal SPO2 greater than 90% Aggressive pulmonary toilet Disposition: Remain in the CVICU overnight. If she continues to improve, would consider transitioning the stepdown unit tomorrow. Critical care medicine will continue to follow along as long as patient remains in the ICU Code Status Full code Discussed Condition With Dr. Faith, Dr. bethea, Adrian Hernandez MD Mar 12, 2017 17:47
[2017-03-12] MEDS ORDERED: RESP: ALBUTEROL 2.5 MG/IPRATROPIUM 0.5 MG NEB (PRN) INH (18:00)
[2017-03-12] MEDS ORDERED: hydrALAZINE HCL 20 MG/ML VIAL ONE (18:07)
[2017-03-12] MEDS ORDERED: hydrALAZINE HCL 20 MG/ML VIAL IV PRN (19:00)
[2017-03-12] MEDS: ACETAMINOPHEN 1000 MG/100 ML 100 ML IV PRN (19:27)
[2017-03-12] MEDS: SODIUM CHLOR 0.9% 1000 ML 1,000 ML IV SCH (22:00)
[2017-03-12] MEDS ORDERED: ONDANSETRON HCL 4 MG/2 ML VIAL ONE (22:10)
[2017-03-12] MEDS: ONDANSETRON HCL 4 MG/2 ML VIAL IV PUSH PRN (22:48)
[2017-03-13 03:00] VITALS: PULSE 80
[2017-03-13 03:35] VITALS: BP_SYST 112; BP_SYST 128; BP_DIAS 46; BP_DIAS 51; PULSE 79; RESP 18; TEMP 98.3; O2SAT 99
[2017-03-13] MEDS: SODIUM CHLOR 0.9% 1000 ML 1,000 ML IV SCH ×2 (06:00→14:00)
--- NOTE | 2017-03-13 07:58 | MB ---
cc: BECK WICK HANSCY M.D. MOLPUS, KELLY L. MD COXROBINSON CARPENTER DATE OF CONSULTATION 03/13/2017 REASON FOR CONSULTATION Evaluation for possible AV block status post TAVR. HISTORY Mrs. Urban is a 76-year-old female with a history of anemia, high blood pressure, hyperlipidemia, aortic stenosis admitted for trans aortic valve replacement. Post procedure was consulted for evaluation for possible AV block and conduction disease. The chart was reviewed. The patient was evaluated. ALLERGIES None SOCIAL HISTORY Negative for smoking and drinking. FAMILY HISTORY Noncontributory to her current medical condition. MEDICATIONS Mrs. Urban is currently on: 1. Acetaminophen 2. She is on aspirin. 3. Plavix 4. Metoprolol 5. Valsartan 220 mg a day REVIEW OF SYSTEMS She refers feeling better. Some epigastric discomfort, but no fever. PHYSICAL EXAM Alert, fully oriented. VITAL SIGNS: Blood pressure this morning 112/51, pulse 79, respiratory rate is 18 LUNGS: Ventilated. CARDIOVASCULAR: S1-S2, no gallop or murmur. ABDOMEN: Obese. No mass. No bruits. EXTREMITIES: With no edema. NECK: There is a right jugular central vein. Electrocardiogram shows sinus rhythm, poor R-wave progression, diffuse ST changes. LABORATORY DATA Hemoglobin is 12.8, white blood cell 4.8, platelet is 160, potassium is 4.0, creatinine 0.82, INR 1.0. ASSESSMENT AND RECOMMENDATIONS Mrs. Urban is stable. Sinus rhythm now complex rhythm. Ejection fraction over 65%. My recommendation at this point, continue current management. Can be discharged home when he it is okay with the TAVR team. I will follow her on a p.r.n. basis. MD SWATI Caputo/NIRMALA /7:41 AM /7:47 AM
[2017-03-13 08:00] VITALS: BP_SYST 119; BP_SYST 151; BP_DIAS 56; BP_DIAS 60; PULSE 16; PULSE 92; RESP 16; TEMP 98.1; O2SAT 99
[2017-03-13 08:30] VITALS: O2SAT 99
[2017-03-13] MEDS ORDERED: PRAVASTATIN SOD 20 MG TAB PO SCH (09:00)
[2017-03-13] MEDS ORDERED: PANTOPRAZOLE SOD 40 MG DELAYED RELEASE TAB PO SCH (09:00)
[2017-03-13] MEDS ORDERED: CLOPIDOGREL 75 MG TAB PO SCH (09:00)
[2017-03-13] MEDS ORDERED: NON-FORMULARY DRUG (Multiple Vitamin 1 TAB) PO SCH (09:00)
[2017-03-13] MEDS ORDERED: MULTIVITAMIN TAB PO SCH (09:00)
[2017-03-13] MEDS ORDERED: VALSARTAN 160 MG TAB PO SCH (09:00)
[2017-03-13] MEDS ORDERED: NON-FORMULARY DRUG (Omeprazole 40 MG) PO SCH (09:00)
[2017-03-13] MEDS: ASPIRIN 81 MG CHEW TAB PO SCH (09:19)
[2017-03-13] MEDS: ACETAMINOPHEN 1000 MG/100 ML 100 ML IV PRN (09:30)
[2017-03-13] MEDS: ONDANSETRON HCL 4 MG/2 ML VIAL IV PUSH PRN (09:30)
--- NOTE | 2017-03-13 09:33 | PD.CAR.PN ---
CVT Progress Note Subjective/Hospital Course: 68-year-old female with a past history significant for uterine cancer, anemia, asthma, hypertension, hyperlipidemia, and severe aortic stenosis who presents for elective transcatheter aortic valve replacement. She underwent uncomplicated aortic valve replacement via iliac access. Was seen and surgery: Transvalvular aortic valve replacement with a 23 Lakeisha 3 tissue valve 03/12 Balloon aortic valvuloplasty with an 18 True Balloon Percutaneous right and left femoral arterial access with Perclose closure of the right femoral artery Aortography 03/[address] Lawson, no rhythm disturbance, normal EF, weaning off 02 , mild discomfort right neck area home meds resumed, on plavix Objective: GENERAL: A&O x 3 SKIN: Warm and dry. right IJ cvc line with temp pacer , both groins sites with dressing in place, no hematoma HEAD: Normocephalic. EYES: No scleral icterus. No injection or drainage. NECK: Supple, trachea midline. No JVD or lymphadenopathy. CARDIOVASCULAR: Regular rate and rhythm without murmurs, gallops, or rubs. RESPIRATORY: Breath sounds equal bilaterally. No accessory muscle use. GASTROINTESTINAL: Abdomen soft, non-tender, nondistended. MUSCULOSKELETAL: No cyanosis, or edema. BACK: Nontender without obvious deformity. No CVA tenderness. Vital Signs Date Time Temp Pulse Resp B/P (MAP) Pulse Ox O2 Delivery O2 Flow Rate FiO2 03/13/17 03:35 98.3 79 18 112/51 (71) 99 128/46 (73) 03/13/17 03:35 99 Nasal Cannula 2.00 03/13/17 03:00 80 03/12/17 23:15 98 Nasal Cannula 2.00 03/12/17 23:15 98.0 88 18 110/48 (68) 98 123/43 (69) 03/12/17 23:00 97 03/12/17 21:11 99 Nasal Cannula 2.00 03/12/17 19:15 97.9 83 16 120/68 (85) 97 158/57 (90) 03/12/17 19:15 96 Nasal Cannula 2.00 03/12/17 19:00 87 03/12/17 18:00 97.6 82 20 142/81 (101) 94 172/70 (104) 03/12/17 18:00 88 03/12/17 14:00 97.7 73 20 148/80 (102 96 Result Diagram: 03/12/17 1325 03/12/17 1325 Telemetry: NSR (1) S/P TAVR (transcatheter aortic valve replacement) Plan: on plavix, stable rhythm stable for dc from CVS standpoint, when cleared by cardiology 3 defer any further care or orders to Dr Faith (2) Aortic stenosis (3) Diastolic CHF due to valvular disease Bernie Sheikh Mar 13, 2017 09:33
--- NOTE | 2017-03-13 10:16 | PD.CARD.PN ---
Subjective Subjective Remarks no overnight events Objective Medications Current Medications Medications (Trade) Dose Ordered Sig/Brent Route Start Time Stop Time Status Last Admin Sodium Chloride 1,000 ml @ 125 mls/hr Q8H IV 03/12/17 14:00 03/12/17 22:00 Cefazolin Sodium/ Dextrose 50 ml @ 100 mls/hr [employer] PRN IV 03/12/17 14:00 03/15/17 13:59 03/12/17 16:03 (Betadine 5% Antisepsis Kit) 1 applic [employer] PRN EACH NARE 03/12/17 14:00 03/15/17 13:59 03/12/17 14:02 (Bactroban Nasal 2% Oint) 1 applic [employer] PRN EACH NARE 03/12/17 14:00 03/15/17 13:59 (Chlorhexidine 2% Cloth) 3 pack [employer] PRN TOPICAL 03/12/17 14:00 03/15/17 13:59 03/12/17 14:02 Lactated Ringer's 1,000 ml @ 30 mls/hr Q24H PRN IV 03/12/17 14:15 03/15/17 14:14 Sodium Chloride 500 ml @ 30 mls/hr [id number] PRN IV 03/12/17 14:15 03/15/17 14:14 (Lopressor) 25 mg [employer] PRN PO 03/12/17 14:15 03/15/17 14:14 (Betadine 5% Antisepsis Kit) 1 applic [employer] PRN EACH NARE 03/12/17 14:15 03/15/17 14:14 (Chlorhexidine 2% Cloth) 3 pack [employer] PRN TOPICAL 03/12/17 14:15 03/15/17 14:14 (NovoLIN R INJ) See Protocol Table ... [employer] PRN SQ 03/12/17 14:15 03/15/17 14:14 (Tylenol) 650 mg Q4H PRN PO 03/12/17 17:30 03/13/17 17:29 (Aspirin Chew) 81 mg DAILY PO 03/12/17 17:30 03/13/17 09:19 (Plavix) 75 mg DAILY PO 03/13/17 09:00 03/13/17 09:19 (D50w (Vial) Inj) 50 ml UNSCH PRN IV PUSH 03/12/17 17:30 (Glucagon Inj) 1 mg UNSCH PRN OTHER 03/12/17 17:30 (Proair Hfa Inh) 2 puff TID PRN INH 03/12/17 17:30 (Pravachol) 20 mg DAILY PO 03/13/17 09:00 03/13/17 09:19 (Diovan) 320 mg DAILY PO 03/13/17 09:00 03/13/17 09:19 (Duoneb Neb) 1 ampule Q2HR NEB PRN INH 03/12/17 18:00 (Theragran) 1 tab DAILY PO 03/13/17 09:00 03/13/17 09:19 (Protonix) 40 mg DAILY PO 03/13/17 09:00 03/13/17 09:20 (Apresoline Inj) 10 mg Q30M PRN IV 03/12/17 19:00 03/12/17 22:29 Acetaminophen 100 ml @ 400 mls/hr Q6H PRN IV 03/12/17 19:00 03/12/17 19:27 (Zofran Inj) 4 mg Q6H PRN IV PUSH 03/12/17 22:45 03/12/17 22:48 Vital Signs / I&O Vital Signs Date Time Temp Pulse Resp B/P (MAP) Pulse Ox O2 Delivery O2 Flow Rate FiO2 03/13/17 08:30 99 Nasal Cannula 2.00 03/13/17 08:30 99 Nasal Cannula 2.00 03/13/17 03:35 98.3 79 18 112/51 (71) 99 128/46 (73) 03/13/17 03:35 99 Nasal Cannula 2.00 03/13/17 03:00 80 03/12/17 23:15 98 Nasal Cannula 2.00 03/12/17 23:15 98.0 88 18 110/48 (68) 98 123/43 (69) 03/12/17 23:00 97 03/12/17 21:11 99 Nasal Cannula 2.00 03/12/17 19:15 97.9 83 16 120/68 (85) 97 158/57 (90) 03/12/17 19:15 96 Nasal Cannula 2.00 03/12/17 19:00 87 03/12/17 18:00 97.6 82 20 142/81 (101) 94 172/70 (104) 03/12/17 18:00 88 03/12/17 14:00 97.7 73 20 148/80 (102) 96 I/O 03/12/17 03/12/17 03/12/17 03/13/17 03/13/17 03/13/17 07:00 15:00 23:00 07:00 15:00 23:00 Intake Total 1090 ml 1531 ml Output Total 455 ml 705 ml Balance 635 ml 826 ml Intake Oral 0 ml 50 ml IV Total 90 ml 1481 ml Other 1000 ml Output Urine Total 450 ml 705 ml Estimated Blood Loss 5 ml # Bowel Movements 0 Physical Exam GENERAL: Well-nourished, well-developed patient. SKIN: Warm and dry. HEAD: Normocephalic. EYES: No scleral icterus. No injection or drainage. NECK: Supple, trachea midline. No JVD or lymphadenopathy. CARDIOVASCULAR: Regular rate and rhythm without murmurs, gallops, or rubs. RESPIRATORY: Breath sounds equal bilaterally. No accessory muscle use. GASTROINTESTINAL: Abdomen soft, non-tender, nondistended. EXTREMITIES: No cyanosis, or edema. NEUROLOGICAL: Awake, alert, and oriented x 3. Non-focal. Laboratory Laboratory Tests Test 03/12/17 13:25 White Blood Count 4.8 TH/MM3 Red Blood Count 3.90 MIL/MM3 Hemoglobin 12.8 GM/DL Hematocrit 37.4 % Mean Corpuscular Volume 95.9 FL Mean Corpuscular Hemoglobin 32.9 PG Mean Corpuscular Hemoglobin Concent 34.3 % Red Cell Distribution Width 13.0 % Platelet Count 160 TH/MM3 Mean Platelet Volume 9.2 FL Neutrophils (%) (Auto) 56.4 % Lymphocytes (%) (Auto) 29.2 % Monocytes (%) (Auto) 12.5 % Eosinophils (%) (Auto) 1.5 % Basophils (%) (Auto) 0.4 % Neutrophils # (Auto) 2.7 TH/MM3 Lymphocytes # (Auto) 1.4 TH/MM3 Monocytes # (Auto) 0.6 TH/MM3 Eosinophils # (Auto) 0.1 TH/MM3 Basophils # (Auto) 0.0 TH/MM3 CBC Comment DIFF FINAL Differential Comment Prothrombin Time 10.2 SEC Prothromb Time International Ratio 1.0 RATIO Activated Partial Thromboplast Time 27.4 SEC Blood Urea Nitrogen 21 MG/DL Creatinine 0.82 MG/DL Random Glucose 87 MG/DL Calcium Level 9.1 MG/DL Sodium Level 139 MEQ/L Potassium Level 4.0 MEQ/L Chloride Level 104 MEQ/L Carbon Dioxide Level 30.7 MEQ/L Anion Gap 4 MEQ/L Estimat Glomerular Filtration Rate 67 ML/MIN Assessment and Plan Problem List: (1) S/P TAVR (transcatheter aortic valve replacement) ICD Codes: Z95.2 - Presence of prosthetic heart valve Plan: s/p right TF TAVR with a 23mm S3 Acute on chronic diastolic HF on exam No CV complaints Appreciate EP recs Recs: 1. Lasix 20mg IV x1 2. ASA and Plavix 3. PT/OT eval 4. Encourage ambulation and incentive spirometry 5. Cont home medications If continues to be stable will d/c home later today. (2) Aortic stenosis ICD Codes: I35.0 - Nonrheumatic aortic (valve) stenosis (3) Diastolic CHF due to valvular disease ICD Codes: I38 - Endocarditis, valve unspecified; I50.30 - Unspecified diastolic (congestive) heart failure Homer Antonio MD Mar 13, 2017 10:16
[2017-03-13] MEDS ORDERED: PLAV75TA29 PO (10:30)
--- NOTE | 2017-03-13 10:33 | HHI.DS ---
Discharge Summary Admission Date Mar 12, 2017 at 12:50 Discharge Date: Mar 13, 2017 Admitting Diagnosis SEVERE SYMPTOMATIC AORTIC STENOSIS (1) Aortic stenosis Diagnosis: Principal ICD Codes: I35.0 - Nonrheumatic aortic (valve) stenosis (2) Diastolic CHF due to valvular disease Diagnosis: Secondary ICD Codes: I38 - Endocarditis, valve unspecified; I50.30 - Unspecified diastolic (congestive) heart failure (3) S/P TAVR (transcatheter aortic valve replacement) ICD Codes: Z95.2 - Presence of prosthetic heart valve (4) Acute on chronic diastolic heart failure Diagnosis: Secondary ICD Codes: I50.33 - Acute on chronic diastolic (congestive) heart failure Procedures RIGHT TF TAVR Brief History 76 Y/O F WITH SEVERE SYMPTOMATIC WITH PRESERVED EF, ACUTE ON CHRONIC DIASTOLIC HEART FAILURE CBC/BMP: 03/12/17 1325 03/12/17 1325 Significant Findings Laboratory Tests Test 03/12/17 13:25 Red Blood Count 3.90 MIL/MM3 (4.00-5.30) Monocytes (%) (Auto) 12.5 % (0.0-8.0) Blood Urea Nitrogen 21 MG/DL (7-18) Anion Gap 4 MEQ/L (5-15) Estimat Glomerular Filtration Rate 67 ML/MIN (>89) PE at Discharge GENERAL: Well-nourished, well-developed patient. SKIN: Warm and dry. HEAD: Normocephalic. EYES: No scleral icterus. No injection or drainage. NECK: Supple, trachea midline. No JVD or lymphadenopathy. CARDIOVASCULAR: Regular rate and rhythm without murmurs, gallops, or rubs. RESPIRATORY: Breath sounds equal bilaterally. No accessory muscle use. GASTROINTESTINAL: Abdomen soft, non-tender, nondistended. EXTREMITIES: No cyanosis, or edema. NEUROLOGICAL: Awake, alert, and oriented x 3. Non-focal. Hospital Course MS. JARA UNDERWENT SUCCESSFUL RIGHT TF TAVR WITH A 23MM S3 VALVE WITHOUT COMPLICATIONS. EVALUATED BY EP PER PROTOCOL NO NEED FOR PERMANENT PACEMAKER PLACEMENT. ACUTE ON CHRONIC HF IMPROVED WITH IV LASIX. NO CV COMPLAINTS, AMBULATING WITHOUT DIFFICULTY. STABLE TO BE D/C HOME TODAY Pt Condition on Discharge: Good Discharge Disposition: Discharge Home Discharge Instructions DIET: Follow Instructions for: As Tolerated, No Restrictions Speech Therapy-Diet Recommenda: Regular Activities you can perform: Weight Bearing as Ade New Medications: Clopidogrel (Plavix) 75 Mg Tab 75 MG PO DAILY for Angina for 30 Days, #30 TAB Continued Medications: Albuterol 18 GM Inh (Ventolin Hfa 18 GM Inh) 90 Mcg/Act Aer 2 PUFF INH Q4-6H PRN for SHORTNESS OF BREATH, #1 INHAL[address] (Aspirin 81) 81 Mg Tabdr 81 MG PO DAILY, TAB 0 Refills Furosemide (Furosemide) 20 Mg Tab 20 MG PO BID, #60 TAB 0 Refills Multiple Vitamin (Multiple Vitamin) 1 Tab 1 TAB PO DAILY for Nutritional Supplement, TAB 0 Refills Omeprazole (Omeprazole) 20 Mg Tab 40 MG PO DAILY, #30 TAB 0 Refills Pravastatin (Pravastatin) 20 Mg Tab 20 MG PO DAILY for Cholesterol Management, #30 TAB 0 Refills Valsartan (Valsartan) 320 Mg Tab 320 MG PO DAILY, #30 TAB 0 Refills Homer Antonio MD Mar 13, 2017 10:33
[2017-03-13 11:00] VITALS: BP 120/60; PULSE 16; PULSE 81; RESP 16; TEMP 98.1; O2SAT 99
[2017-03-13] MEDS ORDERED: FUROSEMIDE 20 MG/2 ML VIAL IV PUSH ONE (11:15)
--- NOTE | 2017-03-13 13:07 | ECHRPT ---
Indication: S/P TAVR CONCLUSIONS Normal left ventricular size. Mild concentric left ventricular hypertrophy. The left ventricular systolic function is grossly normal on limited imaging. Status-post percutaneous aortic valve replacement. TAVR Aortic valve area is 2.1 cm. Aortic valve mean gradient is 12.5 mmHg. BP: 112 / 51 HR: 79 Rhythm: MEASUREMENTS (Male / Female) Normal Values Technical Quality: 2D ECHO LV Diastolic Diameter PLAX 3.9 cm 4.2 - 5.9 / 3.9 - 5.3 cm LV Systolic Diameter PLAX 2.5 cm IVS Diastolic Thickness 1.2 cm 0.6 - 1.0 / 0.6 - 0.9 cm LVPW Diastolic Thickness 1.2 cm 0.6 - 1.0 / 0.6 - 0.9 cm LV Relative Wall Thickness 0.6 LVOT Diameter 2.0 cm Aortic Root Diameter 3.5 cm LA Systolic Diameter LX 3.4 cm 3.0 - 4.0 / 2.7 - 3.8 cm DOPPLER AV Peak Velocity 237.0 cm/s AV Peak Gradient 22.5 mmHg AV Mean Gradient 12.5 mmHg AV Velocity Time Integral 46.9 cm LVOT Peak Velocity 141.0 cm/s LVOT Peak Gradient 8.0 mmHg LVOT Velocity Time Integral 31.1 cm AV Area Cont Eq vti 2.1 cm AV Area Cont Eq pk 1.9 cm Mitral E Point Velocity 61.2 cm/s Mitral A Point Velocity 78.0 cm/s Mitral E to A Ratio 0.8 FINDINGS LEFT VENTRICLE Normal left ventricular size. Mild concentric left ventricular hypertrophy. The left ventricular systolic function is grossly normal on limited imaging. AORTIC VALVE Status-post percutaneous aortic valve replacement. TAVR Aortic valve area is 2.1 cm. Aortic valve mean gradient is 12.5 mmHg. Homer Antonio MD (Electronically Signed) Final Date:13 March 2017 13:06
--- NOTE | 2017-03-13 14:12 | EKG ---
Date Performed: 03/12/2017 Time Performed: 14:33:20 PTAGE: 76 years EKG: Sinus rhythm . Possible left anterior fascicular block Possible anterior infarct - age undetermined Lateral T wave changes are nonspecific Abnormal ECG Compared to prior tracing no significant change PREVIOUS TRACING : 02/15/2008 14.16 DOCTOR: Genet Graham Interpretating Date/Time 03/13/2017 14:11:52
--- NOTE | 2017-03-13 14:13 | EKG ---
Date Performed: 03/13/2017 Time Performed: 04:10:10 PTAGE: 76 years EKG: Sinus rhythm Possible left anterior fascicular block Lateral T wave changes are nonspecific Borderline ECG Compar ed to prior tracing no significant change PREVIOUS TRACING : 03/12/2017 14.33 DOCTOR: Genet Graham Interpretating Date/Time 03/13/2017 14:12:13
[2017-03-13 15:00] VITALS: BP 130/60; PULSE 16; PULSE 81; RESP 16; TEMP 98.1; O2SAT 99
== END 2017-03-13 15:30 | disposition home or self-care (01) | DRG 266 ==
LOC: UNDOADMIN 12:49 → HSDI 12:49 → HDIC 12:50 → HCVI 17:43
PROVIDERS: ADMIT Radiology Vascular & Interventional Radiology; ATTEND Radiology Vascular & Interventional Radiology
PROC: B3101ZZ Fluoroscopy of Thoracic Aorta using Low Osmolar Contrast (ICD-10-PCS; 2017-03-12)
PROC: 02RF38Z Replacement of Aortic Valve with Zooplastic Tissue, Percutaneous Approach (ICD-10-PCS; principal; 2017-03-12 16:30)
PROC: 027F3ZZ Dilation of Aortic Valve, Percutaneous Approach (ICD-10-PCS; 2017-03-12 16:30)
PROC: B246ZZ4 Ultrasonography of Right and Left Heart, Transesophageal (ICD-10-PCS; 2017-03-12 16:30)
DX: I35.2 Nonrheumatic aortic (valve) stenosis with insufficiency (principal); I50.33 Acute on chronic diastolic (congestive) heart failure; I31.3 Pericardial effusion (noninflammatory); D63.8 Anemia in other chronic diseases classified elsewhere; J45.909 Unspecified asthma, uncomplicated; I11.0 Hypertensive heart disease with heart failure; E78.00 Pure hypercholesterolemia, unspecified; Z90.710 Acquired absence of both cervix and uterus; Z00.6 Encounter for examination for normal comparison and control in clinical research program; Z85.42 Personal history of malignant neoplasm of other parts of uterus; Z92.3 Personal history of irradiation
CPT/HCPCS: 33210; 33361; 36430; 80048; 85002; 85025; 85610; 85730; 86850; 86900; 86901; 86920; 92986; 93005; 93308; 94150; 94640; 94667; C1760; C1769; C1880; C1893; G0269; J0131; J0360; J0690; J1644; J1940; J2250; J2370; J2405; J2710; J2720; J3010; J7030; P9016